=== PATIENT | male | born 1965 | race Caucasian/White ===

== ENCOUNTER 2025-03-03 20:10 | Emergency (ER) | payer BC ==
[2025-03-03 21:12] LABS: APPEARANCE,URINE SLT CLOUDY (Clear); BILIRUBIN,URINE 1+ (Negative); COLOR,URINE ORANGE (Yellow); GLUCOSE,URINE 2+ (Negative); KETONES,URINE 3+ (Negative); LEUKOCYTE ESTERASE,URINE 3+ (Negative); NITRITE,URINE POSITIVE (Negative); OCCULT BLOOD,URINE TRACE-INTACT (Negative); PROTEIN,URINE 3+ (Negative)
[2025-03-03 21:28] LABS: SQUAMOUS EPITHELIAL CELLS,UR 0-5 /hpf (0-5); WBC,URINE 20-30 /hpf (0-5)
[2025-03-03 21:29] LABS: BACTERIA,URINE FEW /hpf (FEW); MUCUS,URINE FEW /hpf (FEW)
[2025-03-03 21:40] LABS: BASOPHILS PERCENT AUTO 0.2 % (0.0-1.0); EOSINOPHILS ABSOLUTE AUTO 0.1 K/mm3 (0.0-0.4); EOSINOPHILS PERCENT AUTO 0.8 % (0.0-6.0); HEMATOCRIT 40.2 % (42.0-52.0); HEMOGLOBIN 13.5 gm/dl (14.0-18.0); IMMATURE GRAN PERCENT AUTO 0.6 % (0.0-0.4); MEAN CORPUSCULAR HEMOGLOBIN 30.1 pg (28.0-32.0); MEAN CORPUSCULAR HGB CONC 33.6 g/dl (32.0-36.0); MEAN CORPUSCULAR VOLUME 89.7 fl (83.0-99.0); MEAN PLATELET VOLUME 9.7 fl (9.4-12.4); MONOCYTES ABSOLUTE AUTO 1.5 K/mm3 (0.0-0.8); MONOCYTES PERCENT AUTO 9.3 % (0.0-8.0); NEUTROPHILS ABSOLUTE AUTO 13.6 K/mm3 (1.8-7.7); NEUTROPHILS PERCENT AUTO 83.1 % (41.0-71.0); PLATELET COUNT,PLT 227 K/mm3 (150-400); RED BLOOD CELL COUNT 4.48 M/mm3 (4.52-5.90); WHITE BLOOD CELL COUNT,WBC 16.41 K/mm3 (3.9-11.3)
[2025-03-03 22:00] LABS: A/G RATIO 0.8 (1-2); ALBUMIN 3.1 g/dl (3.4-5.0); ANION GAP 15.5 (5-15); BILIRUBIN TOTAL 0.5 mg/dL (0.2-1.0); CALCIUM 8.9 mg/dL (8.5-10.1); CREATININE 1.5 mg/dL (0.7-1.3); EST CRCL DRUG DOSING (CG) 49.58 mL/min; POTASSIUM,K 3.5 mEq/L (3.5-5.1); PROTEIN TOTAL,TP 7.2 g/dl (6.4-8.2)
[2025-03-03] MEDS: Sodium Chloride 0.9% 1,000 ML IV ONE (22:16)
[2025-03-03] MEDS: Ketorolac 15 MG/ML SDV IVPUSH ONE (22:18)
[2025-03-03] MEDS: Sodium Chloride 0.9% 10 ML Syringe FLUSH PRN (22:20)
[2025-03-03] MEDS: Levofloxacin/Dextrose 5%-Water 750 MG in Premix Bag 1 BAG IV ONE (23:59)
[2025-03-04 00:09] LABS: LACTIC ACID 0.9 mmol/L (0.4-2.0)
[2025-03-04] MEDS: Sodium Chloride 0.9% 1,000 ML IV ONE (01:28)
[2025-03-04 05:36] LABS: BASOPHILS PERCENT AUTO 0.2 % (0.0-1.0); EOSINOPHILS ABSOLUTE AUTO 0.2 K/mm3 (0.0-0.4); EOSINOPHILS PERCENT AUTO 1.2 % (0.0-6.0); HEMATOCRIT 37.4 % (42.0-52.0); HEMOGLOBIN 12.5 gm/dl (14.0-18.0); IMMATURE GRAN PERCENT AUTO 0.7 % (0.0-0.4); LYMPHOCYTES ABSOLUTE AUTO 0.8 K/mm3 (1.0-4.8); LYMPHOCYTES PERCENT AUTO 5.7 % (24.0-44.0); MEAN CORPUSCULAR HEMOGLOBIN 30.2 pg (28.0-32.0); MEAN CORPUSCULAR HGB CONC 33.4 g/dl (32.0-36.0); MEAN CORPUSCULAR VOLUME 90.3 fl (83.0-99.0); MEAN PLATELET VOLUME 9.4 fl (9.4-12.4); MONOCYTES ABSOLUTE AUTO 1.2 K/mm3 (0.0-0.8); MONOCYTES PERCENT AUTO 8.6 % (0.0-8.0); NEUTROPHILS ABSOLUTE AUTO 11.4 K/mm3 (1.8-7.7); NEUTROPHILS PERCENT AUTO 83.6 % (41.0-71.0); PLATELET COUNT,PLT 211 K/mm3 (150-400); RED BLOOD CELL COUNT 4.14 M/mm3 (4.52-5.90); WHITE BLOOD CELL COUNT,WBC 13.69 K/mm3 (3.9-11.3)
[2025-03-04 06:20] LABS: ANION GAP 15.7 (5-15); BUN/CREATININE RATIO 16.7 (14-18); CALCIUM 8.4 mg/dL (8.5-10.1); CREATININE 1.2 mg/dL (0.7-1.3); EST CRCL DRUG DOSING (CG) 61.97 mL/min; POTASSIUM,K 3.7 mEq/L (3.5-5.1)
== END 2025-03-04 07:03 | disposition home or self-care (01) ==
LOC: JD.ED 20:10
DX: N12 Tubulo-interstitial nephritis, not specified as acute or chronic (principal); E78.00 Pure hypercholesterolemia, unspecified; J45.909 Unspecified asthma, uncomplicated; E11.9 Type 2 diabetes mellitus without complications; Z86.16 Personal history of COVID-19; Z87.891 Personal history of nicotine dependence; Z88.5 Allergy status to narcotic agent; Z91.040 Latex allergy status; Z88.0 Allergy status to penicillin; Z79.899 Other long term (current) drug therapy
CPT/HCPCS: 36415; 74176; 80048; 80053; 81001; 83605; 83690; 85025; 87040; 87086; 96361; 96365; 96366; 96375; 99284; J1885; J1956; J7030